=== PATIENT | male | born 1985 ===

== ENCOUNTER 2020-01-29 15:02 | Emergency (ER) | payer MEDICAID ==
[~2020-01-29] VITALS: Ht 172.7 cm; Wt 75.0 kg
[2020-01-29] MEDS ORDERED: LIDOcaine 1% W/epiNEPHrine 1:200,000 10ml vial IJ ONE (15:30)
[2020-01-29] MEDS ORDERED: AMOX-580 PO (15:56)
[2020-01-29 16:10] VITALS: BP 147/74
== END 2020-01-29 16:12 | disposition home or self-care (01) ==
LOC: ER 15:03
DX: S51.811A Laceration without foreign body of right forearm, initial encounter (principal); S80.02XA Contusion of left knee, initial encounter; S20.319A Abrasion of unspecified front wall of thorax, initial encounter; W54.0XXA Bitten by dog, initial encounter; Y93.89 Activity, other specified; Y92.89 Other specified places as the place of occurrence of the external cause; Y99.8 Other external cause status
CPT/HCPCS: 73090; 73590; 96374; 99284